=== PATIENT | female | born 1990 | race Caucasian/White ===

== ENCOUNTER 2017-01-15 13:56 | Emergency (ER) | payer OTHER, SELFPAY ==
[~2017-01-15] VITALS: Ht 170.2 cm; Wt 90.0 kg
[2017-01-15] MEDS ORDERED: EFFE75CA75 PO (14:07)
[2017-01-15] MEDS ORDERED: VENTAER IN (14:07)
[2017-01-15] MEDS ORDERED: TEGR200T PO (14:07)
[2017-01-15] MEDS ORDERED: SAVE50TA PO (14:07)
[2017-01-15] MEDS ORDERED: CELE1CAP4 PO (14:07)
--- NOTE | 2017-01-15 17:48 | REP ---
Clinical: cough. Comparison: None. Technique: PA and lateral. Findings: The mediastinum and cardiac silhouette are normal. The lung chamorro are clear and without acute consolidation, effusion, or pneumothorax. The skeletal structures are intact and normal. Impression: 1. No acute cardiopulmonary process. Signed by Rudy Amaya MD 01/15/2017 05:40 P
[2017-01-15] MEDS ORDERED: PROAAER10 INH (18:28)
[2017-01-15] MEDS ORDERED: ZITHTAB PO (18:28)
[2017-01-15] MEDS ORDERED: TESS100C PO (18:28)
[2017-01-15 18:37] VITALS: BP 124/78
== END 2017-01-15 18:40 | disposition home or self-care (01) ==
LOC: M ED 13:56
DX: J01.90 Acute sinusitis, unspecified (principal); Z72.0 Tobacco use

== ENCOUNTER 2017-08-22 22:47 | Emergency (ER) | payer OTHER, SELFPAY ==
[2017-08-22 22:34] LABS: KETONE, URINE AUTO RFX NEGATIVE (NEGATIVE); LEUKOCYTE ESTERASE UR AUTO RFX 2+ (NEGATIVE); MUCUS, URINE RFX SMALL (NEGATIVE); NITRITE, URINE AUTO RFX POSITIVE (NEGATIVE); RBC, URINE AUTO RFX 2 /HPF (0-3); SPECIFIC GRAVITY UR AUTO RFX 1.009 (1.002-1.035); SQUAM EPITHELIAL CELL UR AURFX 3 /HPF (0-6); WBC, URINE AUTO RFX 32 /HPF (0-3)
[2017-08-22 22:40] LABS: CONTROL LINE UCG INT CTR LINE PRESENT; URINE PREG TEST NEGATIVE (NEGATIVE)
[2017-08-22] MEDS: NITROFURANTOIN (MACROBID) 100 MG CAP PO (22:55)
== END 2017-08-22 22:58 | disposition home or self-care (01) ==
LOC: M ED 22:47
DX: N39.0 Urinary tract infection, site not specified (principal); G43.909 Migraine, unspecified, not intractable, without status migrainosus; J45.909 Unspecified asthma, uncomplicated; M46.1 Sacroiliitis, not elsewhere classified; M79.7 Fibromyalgia; F41.9 Anxiety disorder, unspecified; F32.9 Major depressive disorder, single episode, unspecified; F43.10 Post-traumatic stress disorder, unspecified; Z72.0 Tobacco use; Z79.899 Other long term (current) drug therapy
CPT/HCPCS: 84703

== ENCOUNTER 2017-09-26 12:29 | Emergency (ER) | payer OTHER ==
[2017-09-26 13:28] LABS: KETONE, URINE AUTO RFX NEGATIVE (NEGATIVE); MUCUS, URINE RFX SMALL (NEGATIVE); NITRITE, URINE AUTO RFX NEGATIVE (NEGATIVE); RBC, URINE AUTO RFX 9 /HPF (0-3); SPECIFIC GRAVITY UR AUTO RFX 1.008 (1.002-1.035); SQUAM EPITHELIAL CELL UR AURFX 7 /HPF (0-6)
[2017-09-26 13:35] LABS: LEUKOCYTE ESTERASE UR AUTO RFX 3+ (NEGATIVE); WBC, URINE AUTO RFX 58 /HPF (0-3)
== END 2017-09-26 15:19 | disposition home or self-care (01) ==
LOC: M ED 12:29
DX: N39.0 Urinary tract infection, site not specified (principal); Z79.899 Other long term (current) drug therapy
CPT/HCPCS: 81001

== ENCOUNTER 2018-03-18 11:17 | Emergency (ER) | payer OTHER ==
[~2018-03-18] VITALS: Ht 170.2 cm; Wt 89.5 kg
[2018-03-18 11:17] VITALS: BP 128/85
[~2018-03-18 11:17] MED LIST: CELE1CAP4 PO; CYCL5TAB PO; EFFE75CA2 PO; MACR100C43 PO; OXYCO5TA PO; PROAAER10 INH; SAVE50TA PO; TEGR200T PO; TESS100C PO; VENTAER IN; ZITHTAB PO
[2018-03-18] MEDS ORDERED: AMBI10TA PO (11:26)
[2018-03-18 11:49] LABS: URINE PREG TEST NEGATIVE (NEGATIVE)
[2018-03-18] MEDS ORDERED: BACT800T5 PO (12:31)
[2018-03-18] MEDS ORDERED: PYRI1TAB5 PO (12:31)
== END 2018-03-18 12:42 | disposition home or self-care (01) ==
LOC: M ED 11:17
DX: N30.00 Acute cystitis without hematuria (principal)